=== PATIENT | male | born 1990 | race African-American/Black ===

== ENCOUNTER 2016-09-09 21:40 | Emergency (ER) | payer OTHER ==
[~2016-09-09] VITALS: Ht 180.3 cm; Wt 93.6 kg
[2016-09-09 21:52] VITALS: TEMP 37; Ht 180.3 cm; Wt 93.6 kg
[2016-09-09 22:13] LABS: HEMATOCRIT 47.9 % (42-52); MEAN CELL VOLUME 89.2 fL (80-100); MEAN CORPUSCULAR HEMOGLOBIN 30.9 pg (25-34); MEAN CORPUSCULAR HGB CONC 34.7 g/dl (32-36); MEAN PLATELET VOLUME 11.6 fL (7.4-10.4); PLATELET COUNT 219 K/uL (130-400); RED BLOOD COUNT 5.37 M/uL (4.7-6.1)
[2016-09-09 22:18] LABS: ISTAT CREATININE 1.1 mg/dl (0.6-1.3); ISTAT HEMOGLOBIN 15.6 g/dl (14.0-18.0); ISTAT IONIZED CALCIUM 1.28 mmol/l (1.12-1.32)
[2016-09-09] MEDS ORDERED: OPTIRAY 320 IV PRN (22:30)
[2016-09-09 22:31] LABS: BUN/CREATININE RATIO 11.4 (10-20); CREATININE 1.1 mg/dl (0.60-1.40); POTASSIUM 4.2 mmol/L (3.5-5.1)
[2016-09-09] MEDS ORDERED: ONDANSETRON INJ 2 MG/ML 2 ML VIAL IV STA (22:41)
[2016-09-09 22:52] LABS: CALCIUM 9.2 mg/dl (8.5-10.1)
[2016-09-09 22:54] LABS: BASO % 1.1 %; BASO ABS # 0.06 K/uL (0-0.2); COMPLETE YES; LYMPH ABS # 2.75 K/uL (1.2-3.4); MONO % 13.8 %; NEUT % 31.1 %
--- NOTE | 2016-09-09 23:01 | DIAGNOSTIC IMAGING REPORT ---
NECK CTA HISTORY: Right-sided neck pain. Attempted hanging. TECHNIQUE: Multiaxial CT images of the neck were performed following the intravenous administration of contrast to evaluate the major cervical vessels. Maximum intensity projection images were also obtained. All measurements were calculated based on NASCET criteria. COMPARISON STUDY: None. FINDINGS: The proximal great vessels are widely patent. There is no significant stenosis, occlusion, or dissection identified within the bilateral common carotid, internal carotid, or vertebral arteries. No cervical spine fractures. No pneumothorax. A 2 mm nodular density within the right lung apex is likely benign. The trachea is patent. The visualized brain parenchyma and orbits are unremarkable. No cervical lymphadenopathy. Prevertebral soft tissues are intact. The major mucosal airway surfaces are within normal limits. The thyroid gland enhances normally. IMPRESSION: No significant stenosis, occlusion, or dissection identified within the carotid or vertebral arteries. An indeterminate 2 mm nodule within the right lung apex. However, given the patient's age this is likely benign Electronically signed by: Marino Engel M.D. 09/09/2016 11:00 PM Dictated Date/Time: 09/09/2016 10:51 PM
--- NOTE | 2016-09-09 23:08 | EMERGENCY ROOM VISIT NOTE ---
History First contact with patient: 21:43 Chief Complaint: OTHER COMPLAINT Stated Complaint: HANGING History of Present Illness The patient is a 26 year old male who presents to the Emergency Room with complaints of attempted hanging today while in the senior care. Patient took a sheet and tightness hands and feet behind him in the chair and wrapped the sheet around his neck and tried to hang himself. He was still in the chair leaning forward. Guards are summoned and untied him. He did not lose consciousness. Patient states he has had suicide attempts in the past. He's been 31 to many times. He is currently incarcerated. Patient states the voices told him to do this. Patient denies chest pain, dyspnea, posterior neck pain, back pain, abdominal pain, numbness, tingling, facial pain, headache, loss of conscious, weakness, or any other medical complaints. No alcohol or drug use. Patient is currently in solitary confinement. He is in this for fighting. Review of Systems See HPI for pertinent positives & negatives. A total of 10 systems reviewed and were otherwise negative. Past Medical/Surgical History Bipolar, personality disorder Social History Smoking Status: Current Some Day Smoker Marital Status: single Occupation Status: other (prisoner) Current/Historical Medications No Active Prescriptions or Reported Meds Allergies Coded Allergies: Shellfish (Verified Allergy, Severe, EDEMA, 09/09/16) Physical Exam Vital Signs Date Time Temp Pulse Resp B/P Pulse Ox O2 Delivery O2 Flow Rate FiO2 09/09/16 21:52 37.0 59 20 147/82 98 Room Air Physical Exam VITALS: Vitals are noted on the nurse's note and reviewed by myself. Vital signs stable. GENERAL: -[place] male C-collared and backboard, in no acute distress, nondiaphoretic, well-developed well-nourished. SKIN: No fernandez to the neck at all. The skin was without rashes, erythema, edema , or bruising. There is no tenting of the skin. Capillary reflex less than 2 seconds. HEAD: Normocephalic atraumatic. EARS: External auditory canals clear, tympanic membranes pearly humphrey without erythema or effusion bilaterally. EYES: Pupils equal round and reactive to light and accommodation. Conjunctivae without injection, sclerae without icterus. Extraocular movements intact. NOSE: Patent, turbinates without inflammation or discharge. No sinus tenderness. MOUTH: Mucous membranes moist. Pharynx without erythema or exudate. Uvula midline. Airway patent. Tongue does not deviate. NECK: Supple without nuchal rigidity. No lymphadenopathy. No thyromegaly. Cervical spine is nontender. No JVD. HEART: Regular rate and rhythm without murmurs gallops or rubs. LUNGS: Clear to auscultation bilaterally without wheezes, rales or rhonchi. No dullness to percussion. No retractions or accessory muscle use. ABDOMEN: Positive bowel sounds x 4. Normal tympanic percussion. Soft, nontender, without masses or organomegaly. Taylor sign negative. No guarding or rebound tenderness. MUSCULOSKELETAL: No muscle atrophy, erythema, or edema noted. No thoracic or lumbar tenderness on exam. 5 out of 5 strength throughout. NEURO: Patient was alert and oriented to person place and time. Normal sensation to light and sharp touch. No focal neurological deficits. Cranial nerves II through XII grossly intact. No pronator drift. Cerebellar exam intact. Medical Decision & Procedures Laboratory Results 09/09/16 22:00 Red Blood Count 5.37, Mean Corpuscular Volume 89.2, Mean Corpuscular Hemoglobin 30.9, Mean Corpuscular Hemoglobin Concent 34.7, Mean Platelet Volume 11.6, Neutrophils (%) (Auto) 31.1, Lymphocytes (%) (Auto) 50.0, Monocytes (%) (Auto) 13.8, Eosinophils (%) (Auto) 4.0, Basophils (%) (Auto) 1.1, Neutrophils # (Auto ) 1.71, Lymphocytes # (Auto) 2.75, Monocytes # (Auto) 0.76, Eosinophils # (Auto ) 0.22, Basophils # (Auto) 0.06 09/09/16 22:00 Test 09/09/16 22:00 09/09/16 22:06 White Blood Count 5.50 K/uL (4.8-10.8) Red Blood Count 5.37 M/uL (4.7-6.1) Hemoglobin 16.6 g/dL (14.0-18.0) Hematocrit 47.9 % (42-52) Mean Corpuscular Volume 89.2 fL (80-100) Mean Corpuscular Hemoglobin 30.9 pg (25-34) Mean Corpuscular Hemoglobin Concent 34.7 g/dl (32-36) Platelet Count 219 K/uL (130-400) Mean Platelet Volume 11.6 fL (7.4-10.4) Neutrophils (%) (Auto) 31.1 % Lymphocytes (%) (Auto) 50.0 % Monocytes (%) (Auto) 13.8 % Eosinophils (%) (Auto) 4.0 % Basophils (%) (Auto) 1.1 % Neutrophils # (Auto) 1.71 K/uL (1.4-6.5) Lymphocytes # (Auto) 2.75 K/uL (1.2-3.4) Monocytes # (Auto) 0.76 K/uL (0.11-0.59) Eosinophils # (Auto) 0.22 K/uL (0-0.5) Basophils # (Auto) 0.06 K/uL (0-0.2) RDW Standard Deviation 42.5 fL (36.4-46.3) RDW Coefficient of Variation 13.1 % (11.5-14.5) Immature Granulocyte % (Auto) 0.0 % Immature Granulocyte # (Auto) 0.00 K/uL (0.00-0.02) Est Creatinine Clear Calc Drug Dose 119.9 ml/min Estimated GFR () 107.6 Estimated GFR (Non- 92.8 BUN/Creatinine Ratio 11.4 (10-20) Calcium Level 9.2 mg/dl (8.5-10.1) Bedside Hemoglobin 15.6 g/dl (14.0-18.0) Bedside Hematocrit 46 % (42-52) Bedside Sodium 142 mEq/L (135-144) Bedside Potassium 4.3 mEq/L (3.3-5.0) Bedside Chloride 99 mEq/L (101-112) Bedside Total CO2 28 mEq/l (24-31) Anion Gap 20.0 mmol/L (16-25) Bedside Blood Urea Nitrogen 13 mg/dl (7-18) Bedside Creatinine 1.1 mg/dl (0.6-1.3) Bedside Glucose (other) 91 mg/dl (70-99) Bedside Ionized Calcium (Criselda) 1.28 mmol/l (1.12-1.32) Medications Administered Medications (Trade) Dose Ordered Sig/Arnie Route Start Time Stop Time Status Last Admin Dose Admin Ondansetron HCl (Zofran Inj) 4 mg NOW STAT IV 5/12/17 22:41 09/09/16 22:42 DC 09/09/16 22:46 4 MG ED Course Prior records/ancillary studies reviewed. Triage Nursing notes reviewed. Additional history obtained from correctional officers. The patient's history was concerning for traumatic injury Differential diagnosis: Etiologies such as neck injury, vascular injury, fracture, dislocation, intra- abdominal, pneumothorax, intrathoracic , intracranial, neurologic, as well as other traumatic pathologies were entertained. Physical examination findings: As above. The patients vitals were stable. ER treatment provided: IV Normal Saline hydration C-collar was removed and patient was removed from the backboard. Patient had no cervical tenderness and full active motion without pain. On reassessment the patient felt better. Vital signs were stable. Diagnostic interpretation by me: The labs revealed no worrisome leukocytosis or electrolyte abnormality Imaging studies: NECK CTA HISTORY: Right-sided neck pain. Attempted hanging. TECHNIQUE: Multiaxial CT images of the neck were performed following the intravenous administration of contrast to evaluate the major cervical vessels. Maximum intensity projection images were also obtained. All measurements were calculated based on NASCET criteria. COMPARISON STUDY: None. FINDINGS: The proximal great vessels are widely patent. There is no significant stenosis, occlusion, or dissection identified within the bilateral common carotid, internal carotid, or vertebral arteries. No cervical spine fractures. No pneumothorax. A 2 mm nodular density within the right lung apex is likely benign. The trachea is patent. The visualized brain parenchyma and orbits are unremarkable. No cervical lymphadenopathy. Prevertebral soft tissues are intact. The major mucosal airway surfaces are within normal limits. The thyroid gland enhances normally. IMPRESSION: No significant stenosis, occlusion, or dissection identified within the carotid or vertebral arteries. An indeterminate 2 mm nodule within the right lung apex. However, given the patient's age this is likely benign Electronically signed by: Marino Engel M.D. I also spoke to the senior care nurse and states the patient had no past medical history listed in his file. This appears to be consistent with attempted hanging. Patient had unremarkable workup as above. He is currently incarcerated in solitary confinement and will be on a psychiatric watch. I feel will discharge him back to the senior care. He was advised to avoid attempted suicide in the future and to seek psychiatric help. Patient was neurovascularly and neurologically intact. No other injuries are noted. He was well-appearing. By the evaluation outlined above emergent etiologies such as fracture, dislocation, intra-abdominal, pneumothorax , pulmonary contusion, hemothorax, intracranial, neurologic,as well as others were deemed relatively unlikely. The pt informed about the findings as listed above. All questions were answered and pleased with the treatment. Return instructions were outlined and the patient was discharged in stable condition. Referral: The patient was referred to senior care doctor for follow-up in 2 to 3 days for a recheck of the current condition. Case reviewed with my attending Medical Decision As above Impression Primary Impression: Suicide attempt by hanging Additional Impression: Neck pain Departure Information Dispostion Home / Self-Care Condition GOOD Prescriptions No Active Prescriptions or Reported Meds Referrals Sharron REYNOLDS (PCP) Patient Instructions My [facility] Additional Instructions Go back to solitary confinement and psychiatric watch for suicide attempt. Recommend to seek psychiatric treatment. Recommend not to attempt to kill yourself again. Rest. Stay well-hydrated. Recommend stop smoking. Follow-up with senior care doctor in one to 2 days. Return to ER sooner for neck pain, numbness, tingling, worsening signs or symptoms or as needed. Problem Qualifiers Primary Impression: Suicide attempt by hanging Encounter type: initial encounter Qualified Codes: T71.162A - Asphyxiation due to hanging, intentional self-harm, initial encounter
[2016-09-09 23:19] VITALS: BP 133/78; PULSE 75; O2SAT 97
== END 2016-09-09 23:21 | disposition home or self-care (01) ==
LOC: C.EDA 21:42
DX: T71.162A Asphyxiation due to hanging, intentional self-harm, initial encounter (principal); X83.8XXA Intentional self-harm by other specified means, initial encounter; Y92.149 Unspecified place in prison as the place of occurrence of the external cause; F31.9 Bipolar disorder, unspecified; F60.9 Personality disorder, unspecified; F17.210 Nicotine dependence, cigarettes, uncomplicated